=== PATIENT | male | born 1945 | race Caucasian/White ===

== ENCOUNTER 2022-12-15 04:59 | Observation (INO) ==
--- NOTE | 2022-08-09 16:32 | PAT Medication Instructions ---
Medication Instructions Date of Service August 09, 2022 Home Medications celecoxib 200 mg capsule (Celebrex) 200 mg PO BID gabapentin 100 mg capsule 100 mg PO BID metformin 500 mg tablet 500 mg PO HS montelukast 10 mg tablet (Singulair) 10 mg PO DAILY PRN rosuvastatin 10 mg tablet (Crestor) 10 mg PO Q2D tramadol 50 mg tablet 50 mg PO QAM Continue as directed rosuvastatin 10 mg tablet (Crestor) 10 mg PO Q2D ASK your surgeon for instructions celecoxib 200 mg capsule (Celebrex) 200 mg PO BID Take morning of surgery With a small sip of water, OTHERWISE NOTHING TO EAT OR DRINK AFTER MIDNIGHT: gabapentin 100 mg capsule 100 mg PO BID montelukast 10 mg tablet (Singulair) 10 mg PO DAILY PRN(if needed) tramadol 50 mg tablet 50 mg PO QAM Take evening before surgery gabapentin 100 mg capsule 100 mg PO BID metformin 500 mg tablet 500 mg PO HS Other Notes If you have any questions please call us at [phone] or [phone] or [phone] or [phone]
--- NOTE | 2022-08-13 11:06 | Anesthesiology Consultation ---
Date of Service August 13, 2022 Assessment & Plan (1) Encounter for pre-operative examination: - COVID screening: Per assessment on 08/13: No known COVID-19 positive contacts or current COVID-19 related symptoms. Travel screen negative. Patient vaccinated. At surgeon discretion if preop Covid testing being done. - Check BSG AM DOS - Outpatient joint assessment: Pt currently scheduled for inpatient pathway. If surgeon requests review for outpatient joint pathway, patient is acceptable candidate for outpatient joint program from anesthesia standpoint pending surgeon's office assessment of pt motivation/strong home support/completion of same day joint program preop requirements. - Cardiology office visit (08/09/22): "Pt is having left knee replacement in 08/2022.. Pt is cleared at low risk.. RBBB on EKG today.. Denies chest discomfort and SOB. Knee pain limits walking." - Patient acceptable risk for surgery pending surgeon-ordered PCP preop evaluation (Dr. Bowen Gupta/Mani, done already per pt). Chart Review Chart Review: Patient seen in Pre Admission Testing Teaching & Discussion Pre-Anesthesia Teaching/Discussion Notes: Instructed NPO after midnight before surgery,except medications with 15 cc of water. Medication instructions provided according to the PAT guidelines. History Surgery Operation Date: 09/08/22 08:50 Proposed Procedures p Left Total Knee Arthroplasty - Jefferson Fermin MD Height/Weight Height: 6 ft 1 in Weight: 97.8 kg Allergies Allergy/AdvReac Type Severity Reaction Status Date / Time No Known Allergies Allergy Verified 08/09/22 13:31 Medications Home Medications Medication Instructions Recorded Confirmed Last Taken celecoxib 200 mg capsule (Celebrex) 200 mg PO BID 08/09/22 08/09/22 Unknown gabapentin 100 mg capsule 100 mg PO BID 08/09/22 08/09/22 Unknown metformin 500 mg tablet 500 mg PO HS 08/09/22 08/09/22 Unknown montelukast 10 mg tablet 10 mg PO DAILY PRN Congestion 08/09/22 08/09/22 Unknown (Singulair) rosuvastatin 10 mg tablet (Crestor) 10 mg PO Q2D 08/09/22 08/09/22 Unknown tramadol 50 mg tablet 50 mg PO QAM 08/09/22 08/09/22 Unknown Past Medical History Medical History Degenerative joint disease Diabetes mellitus, type 2 NIDDM Osteoarthritis Exercise / Class Metabolic Activity II 4-5 Yardwork/Stairs/Walk up hill (one FS (no CP, no SOB)) Past Surgical History Surgical History History of esophagogastroduodenoscopy (EGD) Hx of colonoscopy Hx of hemorrhoidectomy Hx of sinus surgery Past Anesthesia History No Hx of Anesthesia Complications and No Family Hx of Anesthesia Complications History of PONV No Hx of PONV and No Hx of Motion Sickness Social History Smoking Status: Former smoker Do You Dip or Chew Tobacco: No Smoking End Date: Age 20s only Hx Alcohol Use: No Hx Substance Use: No substance use type: does not use Review of Systems Recent sinus issues (hx of recurrent sinus issues/infections)- improving. Pt monitoring and will contact PAT if persistent/worsening. Patient denies chest pain, shortness of breath, dyspnea on exertion, fever, chills, cough, wheezing, palpitations. Physical Exam Vital Signs VITALS BP 139/93 P 63 TEMP 98.3 SP02 95%RA RESP 16 PHYSICAL Full cervical extension range of motion. Full TMJ range of motion. TMD 3 finger breaths Mallampati Score 3 Dentition: intact Lungs: clear throughout to auscultation Cardiac: regular rate and rhythm, no murmurs noted Spine: normal Carotid arteries: negative bruit Extremities: no edema Lab Results Anesthesia Preop Results Results Anesthesia Widget: WBC 11.13 K/ul (4.8-10.8) H 08/13/22 Hgb 16.1 g/dl (14.0-18.0) 08/13/22 Hct 45.9 % (40.1-51.0) 08/13/22 Plt 240 K/uL (130-400) 08/13/22 Na 138 mmol/L (136-145) 08/13/22 K 4.1 mmol/L (3.5-5.1) 08/13/22 Cl 103 mmol/L (98-107) 08/13/22 CO2 28 mmol/L (21-32) 08/13/22 BUN 20 mg/dl (6-23) 08/13/22 Creat 0.94 mg/dl (0.6-1.4) 08/13/22 Glucose Level 126 mg/dl (70-99(Fasting)) H 08/13/22 PT 11.7 Seconds (9.0-12.0) 08/13/22 PTT 28.4 Seconds (21.0-31.0) 08/13/22 INR 1.1 (0.9-1.1) 08/13/22 HA1c 6.2 % (4.5-5.6) H 08/13/22 Urine Color Yellow 08/13/22 Urine Appearance Clear (Clear) 08/13/22 Urine pH 7.0 (4.5-7.5) 08/13/22 Urine Specific [place] 1.011 (1.000-1.030) 08/13/22 Urine Protein Negative (Negative) 08/13/22 Urine Glucose (UA) Negative (Negative) 08/13/22 Urine Ketones Negative (Negative) 08/13/22 Urine Blood Negative (Negative) 08/13/22 Urine Nitrite Negative (Negative) 08/13/22 Urine Bilirubin Negative (Negative) 08/13/22 Urine Urobilinogen Negative (Negative) 08/13/22 Urine Leukocyte Esterase Negative (Negative) 08/13/22 Blood Type B Positive 08/13/22 Antibody Screen NEGATIVE 08/13/22 Testing Electrocardiogram Date: 08/09/22 Sinus rhythm with marked sinus arrhythmia with first-degree AV block at 88 bpm. Low voltage QRS. RBBB. T wave abnormality, consider lateral ischemia. Done/reviewed at 08/09/22 cardiology preop evaluation appt Chest X-Ray Date: 08/13/22 Findings: + NAD COVID-19 Risk Screen Screening Information COVID-19 Screen Date: 08/13/22 Exposure 21 Days Family/Household +COVID Last 21 Days: No Exposure 10 Days Any COVID Exposure Last 10 Days: No Symptoms Last 10 Days Experienced COVID Sx Last 10 Days: No + COVID 0-90 Days COVID + in Last 0-90 Days: No
--- NOTE | 2022-08-31 17:16 | History & Physical Report ---
Date of Service August 31, 2022 Assessment & Plan (1) Left knee DJD: Plan: Informed written consent will be obtained the morning of surgery to proceed with Left total knee arthroplasty. Postoperative prescriptions for Percocet 5/325 mg and Coumadin 2 mg will be provided at discharge from the hospital. Anticipate discharge to home with home health services. He will do this for 2 weeks before transitioning to outpatient PT. He has already seen PT for preoperative testing. He is scheduled to see his PCP for medical clearance. PDMP was checked and there are no concerning findings. Patient is aware of the COVID-19 risks associated with surgery. He is currently asymptomatic of any COVID-19 symptoms. He already has access to a cane and walker. Postoperative follow-up appointment has been made with me for September 23 at 1:30 PM. History of Present Illness Chief Complaint: Left knee pain Primary Care Provider: NO PCP This 77-year-old male presents for his preoperative history and physical. He is scheduled to undergo a left knee total knee arthroplasty on 09/08/2022. Patient has had a longstanding history of left knee pain. Symptoms have been ongoing for over 4 years. He has tried viscosupplementation and cortisone injections in the past with moderate success. Over the last 6 months, the lubr ication injections have not been working. Pain is increased. He elects to proceed with surgical intervention in hopes of improving his pain and function. Preoperative imaging has been obtained. Pain is worse with weightbearing. It is affecting his ADLs. He denies any numbness or tingling. Allergies Allergy/AdvReac Type Severity Reaction Status Date / Time No Known Allergies Allergy Verified 08/09/22 13:31 Home Medications Medication Instructions Recorded Confirmed Type celecoxib 200 mg capsule (Celebrex) 200 mg PO BID 08/09/22 08/09/22 History gabapentin 100 mg capsule 100 mg PO BID 08/09/22 08/09/22 History metformin 500 mg tablet 500 mg PO HS 08/09/22 08/09/22 History montelukast 10 mg tablet 10 mg PO DAILY PRN Congestion 08/09/22 08/09/22 History (Singulair) rosuvastatin 10 mg tablet (Crestor) 10 mg PO Q2D 08/09/22 08/09/22 History tramadol 50 mg tablet 50 mg PO QAM 08/09/22 08/09/22 History Past Med/Surg History Medical History (Updated 08/31/22 @ 17:18 by Kenney Hua PA-C) Degenerative joint disease Diabetes mellitus, type 2 NIDDM Low back pain Osteoarthritis Surgical History History of esophagogastroduodenoscopy (EGD) Hx of colonoscopy Hx of hemorrhoidectomy Hx of sinus surgery Family History (Updated 08/31/22 @ 17:11 by Kenney Hua PA-C) Other No pertinent family history Social History Smoking Status: Former smoker Second Hand Exposure: Yes (smoking in the workplace); Hx Alcohol Use: No Hx Substance Use: No Preferred Language: Bahamian Communication Ability: Effective Health Care Attorney Required: No Beliefs That Will Affect Care: None Current Living Situation: Spouse Feels Safe at Home: Yes Assistive Devices: Glasses Review of Systems Review of Systems: All systems reviewed & are unremarkable except as noted in HPI & below A total of 10 systems were reviewed. Physical Exam Physical Exam: General: Well-developed, well-nourished, elderly white male, in no acute distress. Sitting in a chair. Alert and oriented. Conversive. Skin: Warm dry with good turgor. No rashes or lesions. No ecchymosis or erythema. No intra-articular effusion. HEENT: Normocephalic, atraumatic. Eyes PERRLA, EOMI. Nares and oropharynx exams deferred due to COVID precautions. Heart: Heart RRR. No MGR. Peripheral pulses are 2+. Lungs: Lungs are clear to auscultation. No crackles rhonchi or wheezing. Good air movement. The patient is able to take a deep breath. Abdomen: Abdomen was inspected, auscultated, and palpated. Bowel sounds present x 4. Soft, nontender to palpation. No hepato-splenomegaly. No masses noted. No rebound. Musculoskeletal: Left knee evaluation reveals no intra-articular effusion. He has full terminal extension. Flexion to greater than 100 degrees. Strength is 5/5 with fairly good quad tone. He has focal discomfort with palpation of the medial joint line. There is also anterior joint line discomfort with palpation. No lateral joint line discomfort today. He does have parapatellar discomfort, and most of his pain is retropatellar. Crepitus is palpable with motion. Stable collateral events. No defect in the patellar tendon or quadriceps tendon. Neurologic: Gross sensation is intact across both lower extremities by soft touch. Results & Data Results & Data ([facility]) Diagnostic Findings Radiographic imaging previously obtained shows end-stage DJD of the medial compartment of the left knee. Periarticular osteophytes, subchondral sclerosis, and joint space narrowing are all present. There appears to be a loose body present posteriorly as well. Fairly well-preserved patellofemoral space. Code Status & VTE Plan VTE Prophylaxis Plan VTE Prophylaxis will be ordered: Yes
--- NOTE | 2022-12-10 10:55 | Anesthesiology Consultation ---
Date of Service December 10, 2022 Assessment & Plan (1) Encounter for pre-operative examination: Chart Review Chart Review: Acceptable Risk for Surgery and Patient NOT seen in Pre Admission Testing *Pt seen by both PCP and Cardiology in preparation for surgery. PCP visit 12/01/22: 'able to perform 6METS without CP or SOB, No issues with anesthesia in the past, NO hx of abnormal heart rhythms... Pt is considered low to moderate risk for an intermediate risk procedure.' Cardio visit 08/09/22: EKG reviewed. 'RBBB on EKG... pt is cleared at low risk'.* Upon review of chart- patient is an acceptable candidate for Same Day Joint Program from anesthesia perspective. Pending patient is motivated, has good support and surgeon's office completes Same Day Joint Program preop requirements- patient may proceed with outpatient TKA. *CBC, BMP, PT/INR, and POC glucose to be completed AM of surgery* Pt was originally scheduled for this procedure 08/2022 but was delayed 2/2 pt tested positive for COVID-19 on 09/07/22. Pt denies any ongoing COVID sx. Surgery >90days after diagnosis. COVID screening: Per PAT nursing assessment on 12/10/22, No known COVID-19 positive contacts or current COVID-19 related symptoms. Travel screen negative. Patient vaccinated for Covid. At surgeon discretion if preop Covid testing being done. History Surgery Operation Date: 12/15/22 08:50 Proposed Procedures p Left Total Knee Arthroplasty - Jefferson Fermin MD Height/Weight Height: 6 ft 1 in Weight: 94.801 kg Allergies Allergy/AdvReac Type Severity Reaction Status Date / Time No Known Allergies Allergy Verified 12/10/22 09:49 Medications Home Medications Medication Instructions Recorded Confirmed Last Taken celecoxib 200 mg capsule (Celebrex) 200 mg PO BID 08/09/22 12/10/22 Unknown gabapentin 100 mg capsule 100 mg PO BID 08/09/22 12/10/22 Unknown metformin 500 mg tablet 500 mg PO HS 08/09/22 12/10/22 Unknown montelukast 10 mg tablet 10 mg PO DAILY PRN Congestion 08/09/22 12/10/22 Unknown (Singulair) rosuvastatin 10 mg tablet (Crestor) 10 mg PO Q2D 08/09/22 12/10/22 Unknown tramadol 50 mg tablet 50 mg PO QAM 08/09/22 12/10/22 Unknown Past Medical History Medical History (Updated 12/10/22 @ 10:50 by Jessy Gavin PA-C) Degenerative joint disease Diabetes mellitus, type 2 NIDDM History of COVID-19 09/07/22 @ [facility]--mild symptoms--no symptoms now Hyperlipidemia Low back pain Osteoarthritis Past Family History Family History Other No family history of adverse response to anesthesia No pertinent family history Past Surgical History Surgical History History of esophagogastroduodenoscopy (EGD) Hx of colonoscopy Hx of hemorrhoidectomy Hx of sinus surgery Social History Smoking Status: Former smoker Do You Dip or Chew Tobacco: No Smoking End Date: Age 20s only Hx Alcohol Use: No Hx Substance Use: No substance use type: does not use Testing Electrocardiogram Date: 08/09/22 Sinus rhythm with marked sinus arrhythmia with first-degree AV block at 88 bpm. Low voltage QRS. RBBB. T wave abnormality, consider lateral ischemia. Done/reviewed at 08/09/22 cardiology preop evaluation appt Chest X-Ray Date: 08/13/22 Findings: + NAD
[~2022-12-15 04:59] MED LIST: LR 500ML BOLUS, THEN 15ML/HR IV SCH; LR 60ML/HR IV SCH; TRANEXAMIC ACID 1,000 MG **IV Pre-op IV SCH; ceFAZolin 2000MG 2,000 MG/15 ML SYR IV SCH
[2022-12-15] MEDS ORDERED: LR 60ML/HR IV SCH (06:00)
[2022-12-15] MEDS ORDERED: TRANEXAMIC ACID 1,000 MG **IV Pre-op IV SCH (06:00)
[2022-12-15] MEDS ORDERED: ROPIVACAINE 0.5% HCL/PF 150 MG, BUPIVACAINE 0.75% MPF 20 ML, EPINEPHrine 0.15 MG, Ketor... INFIL SCH (06:00)
[2022-12-15] MEDS ORDERED: ceFAZolin 2000MG 2,000 MG/15 ML SYR IV SCH (06:00)
[2022-12-15] MEDS ORDERED: LR 500ML BOLUS, THEN 15ML/HR IV SCH (06:00)
[2022-12-15] MEDS ORDERED: ROPIVACAINE 0.5% 5 MG/ML 30 ML VIAL ONE (06:22)
--- NOTE | 2022-12-15 06:28 | History & Physical Bridge Note ---
Date of Service December 15, 2022 History & Physical Bridge Note I have examined the patient, reviewed the History & Physical and in the interval since the performance of the History & Physical I have noted the following changes of clinical significance:consent obtained/site verified/ no changes noted
[2022-12-15] MEDS ORDERED: ORTHO JOINT ANESTHETIC ONE (06:35)
[2022-12-15] MEDS ORDERED: ONDANSETRON INJ 2 MG/ML 2 ML VIAL IV PRN ×2 (06:40→10:56)
[2022-12-15] MEDS ORDERED: HYDROmorphone INJ 1 MG/ML SYRINGE IV PRN (06:40)
[2022-12-15] MEDS ORDERED: ATROPINE SULFATE 0.1 MG/ML 10ML SYR IV PRN (06:40)
[2022-12-15] MEDS ORDERED: ePHEDrine sulfate 50 MG/ML AMP IV PRN (06:40)
[2022-12-15] MEDS ORDERED: KETOROLAC 30 MG/ML VIAL IV PRN (06:40)
[2022-12-15] MEDS ORDERED: MIDAZOLAM HCL 1 MG/ML 2ML VIAL ONE (06:41)
[2022-12-15] MEDS ORDERED: PROPOFOL IV EMULSION 10 MG/ML 20 ML VIAL IV ONE ×2 (07:02→08:12)
[2022-12-15] MEDS ORDERED: PHENYLEPHRINE 100MCG/ML 5ML SYR ONE (07:32)
--- NOTE | 2022-12-15 08:38 | Post Operative Brief Note ---
Immediate Post Op Note v1 Date of Surgery December 15, 2022 Pre & Post Diagnosis Operation Date: 12/15/22 07:00 <No data on this case meets the specified criteria> I identified the patient and participated in the time-out.: Yes Procedure Operation Date: 12/15/22 07:00 <No data on this case meets the specified criteria> Surgeon Jefferson Fermin MD Cable Tender Sarah/Melita Estimated Blood Loss 25 Findings Consistent with Post-Op Diagnosis
--- NOTE | 2022-12-15 08:46 | Operative Report ---
Post Operative Report Pre & Post Diagnosis Operation Date: 12/15/22 07:00 Pre-Op Diagnosis: Left Knee Degenerative Joint Disease Post-Op Diagnosis: Left Knee Degenerative Joint Disease I identified the patient and participated in the time-out.: Yes Procedure Operation Date: 12/15/22 07:00 Actual Procedures p Left Total Knee Arthroplasty(Left) - Jefferson Fermin MD Surgeon GENE Fermin MD Gang Supervisor Sarah/Melita SANCHEZ Estimated Blood Loss 25 Findings Consistent with Post-Op Diagnosis see operative report Specimens see operative report Drains none Complications none Disposition Accompanied Patient To Recovery: Yes Indications This 77 year old male presented to the office with complaints of persisting left knee pain. He had tried conservative care measures including activity modification, viscosupplementation injections, and oral pain medication, without lasting improvement. He elected to proceed with surgical intervention after being educated about potential risks and outcomes. Preoperative imaging was obtained. Description of Procedure The patient was administered a spinal anesthetic and then taken to the operating room where he was given sedation. He was prepped and draped in the usual sterile fashion. Please see Dr. Fermin's operative report for specifics of the procedure. I was present for the entire case from initial patient positioning through final wound closure. Assistance was provided in tissue retraction, hemostasis, trial implant placement, final implant placement, and final wound closure. Patient was taken to the recovery room in satisfactory condition. I attest to the content of the Intraoperative Record and any orders documented therein. Any exceptions are noted below.
[2022-12-15] MEDS ORDERED: PHENYLEPHRINE HCL 10 MG/ML VIAL ONE (08:49)
--- NOTE | 2022-12-15 09:00 | XRay Report ---
LEFT KNEE 2 VIEWS History: Left total knee arthroplasty. Degenerative arthritis. Postop. FINDINGS: The patient is status post a left total knee arthroplasty. The hardware is intact. No fract ure or dislocation. Skin wilfred are in place. IMPRESSION: Left total knee arthroplasty. No evidence for hardware complication. ACT 112: Negative or not required by law. Electronically signed by: Albert Fenton M.D. 12/15/2022 8:59 AM
--- NOTE | 2022-12-15 09:07 | Progress Notes ---
SUBJECTIVE: Postop check status post left total knee replacement. The patient is resting comfortabl y in bed. Denies any chest pain, shortness of breath, fever, chills, nausea, vomiting or headache. VITAL SIGNS: Stable. He is afebrile. Neurovascular check is limited by his spinal, which was wearing off. His dressing is clean, dry and intact. His x-rays, AP, lateral of the left knee reveals excellent alignment and hardware positioning. ASSESSMENT AND PLAN: Status post left total knee replacement. Continue with care pathway. Discharg e to home tomorrow. DVT prophylaxis per protocol. Job ID: [id number]
--- NOTE | 2022-12-15 09:10 | Operative Report (OR) ---
DATE OF PROCEDURE: 12/15/2022. SURGEON: Jefferson Fermin MD OFFSET PRESS ASSISTANT: Dr. Smith. SECOND OFFSET PRESS ASSISTANT: Kenney Hua PA-C PREOPERATIVE DIAGNOSIS: Osteoarthritis, left knee with varus deformity. POSTOPERATIVE DIAGNOSIS: Osteoarthritis, left knee with varus deformity. OPERATION PERFORMED: Cemented left total knee replacement. PERIOPERATIVE SITUATION: Medically cleared male with intractable knee pain, has recurrent pain, swel ling and discomfort. He has significant issues with doing his activities of daily living and having trouble sleeping. He wants to proceed with surgical treatment. He understands the risks and consequ ences including infection, need for revision, stiffness, etc. Also PE and DVT. SUMMARY OF IMPLANTS: Size 3 left femur, posterior cruciate substituting size 3 mobile bearing tray, size 38 patella, size 3 x 10 insert posterior cruciate substituting 2 bags of Pal[place]os G cement. ESTIMATED BLOOD LOSS: 25 mL. CRYSTALLOID: Per anesthesia. PATHOLOGY: Pending on bone. DVT PROPHYLAXIS: Per protocol. DESCRIPTION OF PROCEDURE: The patient was appropriately identified, site verified, consent verified. Antibiotics were confirmed as being given. The left lower extremity was prepped and draped in the usual routine fashion. He had no significant flexion contracture, but had significant varus. Tourni quet was applied and inflated after the leg was prepped and draped in usual routine fashion to 275 mm Hg after exsanguination of the limb with a rubber Esmarch bandage for a total of 53 minutes. Midline exposure utilized. Parapatellar arthrotomy performed. Synovectomy completed. Osteophytes resected. Distal femur entered. Cruciates resected. Tibia was subluxated, menisci resected. Distal femur w as then cut 12 mm, proximal tibia was then cut 4 mm. The extension gap was excellent. The femur was sized between a 2.5 to a 4, so was measured 4 and cut 3. There were no significant issues. Once mike t was done, the flexion gap was checked after the anterior and posterior condylar and chamfer cuts al l made and the flexion gap was excellent. The posterior capsule was then injected with the Orthomix and then the box cut made and a size 3 fit well. The tibia was then broached and reamed to a size 3 and the trial seated with excellent coverage. Rotation of the implant was excellent. The patella tr acked well. The patella was then everted. Minor synovectomy completed. There was grade IV disease in the central ridge of the patella. This was resected leaving 14 mm. A 38 button was seated. It t racked well. The knee was then injected with Orthomix around the knee. All trial implants were ruben melisa. The knee was irrigated with Pulsavac Betadine and then cemented into position, tibia, femur, an d patella in that order. At 12 minutes, the tourniquet deflated. Minor bleeding points controlled w ith electrocautery. Bone cement placed around the cuttings. At 14 minutes, the knee was flexed. No major cement removal was required. The wound was irrigated with Pulsavac Betadine and then the perm anent liner seated, the knee reduced and closed at 40 degrees of flexion with #2 Vicryl, 2-0 Vicryl, and stainless steel clips. Appropriate dressing applied and the patient was transferred to recovery room in satisfactory condition, having tolerated the procedure well. Pathology pending on bone. DVT prophylaxis per protocol. EBL 25 mL. Femur size 3 left, size 3 tibia mobile bearing tray, size 38 p atella, size 3 x 10 insert, posterior cruciate substituting all J and J rotating platform, DePuy knee system. Job ID: [id number]
--- NOTE | 2022-12-15 09:27 | Discharge Summary (DS) ---
DATE OF ADMISSION: 12/15/2022. DATE OF POTENTIAL DISCHARGE: 12/16/2022. CHIEF COMPLAINT: Left knee pain. HISTORY OF PRESENT ILLNESS: Underwent elective left total knee replacement. To date hospital course has been uneventful. He had COVID back in August and has recovered from that. REVIEW OF SYSTEMS: Reveals no chest pain, shortness of breath, fever, chills, nausea, vomiting or he adache. FAMILY HISTORY: Remarkable for anxiety, hypertension, diabetes. SOCIAL HISTORY: Reveals he is , 3 children and has multiple grandchildren. No tobacco or alc ohol use. He is self employed. PAST MEDICAL HISTORY: Remarkable for non-insulin dependent diabetes, bilateral osteoarthritis, eleva carey cholesterol, anxiety, sinusitis and hearing loss. PAST SURGICAL HISTORY: Includes tonsillectomy, hemorrhoidectomy. Sinus surgery with adenoids. PREADMISSION MEDICATIONS: Include Celebrex, metformin, Singulair, Crestor, tamsulosin, tramadol. ALLERGIES: None. REVIEW OF SYSTEMS: Noncontributory. Postoperative x-rays look excellent. ASSESSMENT: Status post left total knee replacement. Continue care pathway. Discharge home tomorro w if does well overnight. DVT prophylaxis per Coumadin per protocol. Job ID: [id number]
--- NOTE | 2022-12-15 09:39 | Anesthesiology Progress Note ---
Date of Service December 15, 2022 Anesthesia Post Procedure Vital Signs Vital Signs: Temp Pulse Pulse Resp BP Pulse Ox O2 Del Method 12/15/22 09:20 78 14 115/79 95 Room Air 12/15/22 09:10 74 13 119/86 97 Room Air 12/15/22 09:08 36.4 C L 75 18 112/89 100 Room Air 12/15/22 08:50 73 17 113/78 98 Oxymask 12/15/22 09:00 75 18 112/89 100 Oxymask 12/15/22 08:43 36.1 C L 72 16 115/74 100 Oxymask 12/15/22 05:31 36.9 C 75 20 141/93 H 94 Room Air O2 Flow Rate 12/15/22 09:20 12/15/22 09:10 12/15/22 09:08 12/15/22 08:50 9 12/15/22 09:00 9 12/15/22 08:43 9 12/15/22 05:31 Pain Intensity Left Knee: Pain Intensity: 5 Transfer of Care Handoff Completed per policy Notes Mental Status: alert / awake / arousable Patient Amnestic to Procedure: Yes Nausea / Vomiting: adequately controlled Pain: adequately controlled Airway Patency, RR, SpO2: stable & adequate BP & HR: stable & adequate Hydration State: stable & adequate Neuraxial Anesthesia: was administered and sensory block is resolving Anesthetic Complications: no major complications apparent
[2022-12-15] MEDS ORDERED: NALOXONE HCL 0.4 MG/1 ML VIAL/CARP IV PRN (10:56)
[2022-12-15] MEDS ORDERED: MAGNESIUM HYDROXIDE SUSP 30 ML UDC PO PRN (10:56)
[2022-12-15] MEDS ORDERED: PHARMACY GLYCEMIC MGMT CONSULT PRN (10:56)
[2022-12-15] MEDS ORDERED: diphenhydrAMINE 50 MG/ML VIAL IV PRN (10:56)
[2022-12-15] MEDS ORDERED: SODIUM CHLORIDE 0.9% 1000ML 1,000 ML IV SCH (10:56)
[2022-12-15] MEDS ORDERED: TAMSULOSIN HCL 0.4 MG CAP PO PRN (10:56)
[2022-12-15] MEDS ORDERED: bisacodyL 10 MG SUPP PR PRN (10:56)
[2022-12-15] MEDS ORDERED: METOCLOPRAMIDE HCL INJ 5 MG/ML 2 ML VIAL IV PRN (10:56)
[2022-12-15] MEDS ORDERED: ALUMINUM/MAGNESIUM SUSP 30 ML UDC PO PRN (10:56)
[2022-12-15] MEDS ORDERED: HYDROmorphone INJ 0.5 MG/0.5 ML SYR IV PRN (10:56)
[2022-12-15] MEDS ORDERED: MONTELUKAST SODIUM 10 MG TABLET PO PRN (10:56)
[2022-12-15] MEDS ORDERED: DEXTROSE 50% 50 ML SYRINGE IV PRN (11:15)
[2022-12-15] MEDS ORDERED: ROSUVASTATIN CALCIUM 10 MG TAB PO SCH (11:15)
[2022-12-15] MEDS ORDERED: GLUCOSE 40% GEL 15 GM TUBE PO PRN (11:15)
[2022-12-15] MEDS ORDERED: CARBOHYDRATES FOR HYPOGLYCEMIA PO PRN (11:15)
[2022-12-15] MEDS ORDERED: GLUCAGON FOR INJ 1 MG VIAL IM PRN (11:15)
[2022-12-15] MEDS ORDERED: GLUCOSE 10 TAB/TUBE PO PRN (11:15)
[2022-12-15] MEDS: GABAPENTIN 100 MG CAP PO SCH ×2 (11:36→21:18)
[2022-12-15] MEDS: MULTIVITAMIN TAB PO SCH (11:36)
[2022-12-15] MEDS: DOCUSATE SODIUM 100 MG CAP PO SCH ×2 (11:36→21:16)
--- NOTE | 2022-12-15 11:37 | Progress Notes ---
DATE OF SERVICE: 12/15/2022. SUBJECTIVE: Postop check status post left total knee replacement. The patient is awake and alert, f eels fine. Denies any chest pain, shortness of breath, fever, chills, nausea, vomiting or headache. He is eating and drinking. His neurovascular check femoral sciatic nerve is returning well. Wound d ressing clean, dry and intact. Postoperative x-rays look good. ASSESSMENT: Doing well. Continue with care pathway. Likely discharge to home tomorrow. Job ID: [id number]
[2022-12-15] MEDS: INSULIN ASPART PER UNIT CHARGE SC SCH ×3 (11:43→21:17)
[2022-12-15] MEDS: KETOROLAC TROMETHAMINE 15 MG/ML VIAL IV SCH ×3 (13:22→23:36)
[2022-12-15] MEDS: ACETAMINOPHEN 500 MG TAB PO SCH ×2 (13:23→21:18)
[2022-12-15] MEDS ORDERED: ORTHO WARFARIN NOMOGRAM SCH (14:00)
[2022-12-15] MEDS ORDERED: TRANEXAMIC ACID / 0.7% NACL 1,000 MG/100 ML BAG IV SCH (15:00)
[2022-12-15] MEDS ORDERED: WARFARIN SOD 5 MG TAB PO ONE (16:00)
[2022-12-15] MEDS: ceFAZolin 2000MG 2,000 MG/15 ML SYR IV SCH ×2 (16:11→23:35)
[2022-12-15] MEDS: ASCORBIC ACID 500 MG TAB PO SCH (17:40)
[2022-12-15] MEDS: FERROUS GLUCONATE 324 MG TAB PO SCH (17:42)
[2022-12-15] MEDS ORDERED: SENNA 8.6 MG TAB PO SCH (21:00)
[2022-12-16] MEDS: oxyCODONE HCL IR 5 MG TAB (IMMEDIATE RELEASE) PO PRN ×3 (03:52→10:34)
[2022-12-16] MEDS: ACETAMINOPHEN 500 MG TAB PO SCH (05:49)
[2022-12-16] MEDS: KETOROLAC TROMETHAMINE 15 MG/ML VIAL IV SCH (05:49)
--- NOTE | 2022-12-16 07:38 | Pharmacy Report ---
Pharmacy Glycemic Sign Off Nt - Date of Service December 16, 2022 - Assessment & Plan ASSESSMENT: * Pharmacy was consulted by Kenney Hua on 12/15 for glycemic control and to write orders per [facility] inpatient glycemic control protocol. * Major changes made by pharmacy to antidiabetic regimen include: * added novolog scale * Patient has been receiving minimal insulin over last 24 hours * Do not anticipate further changes in patient status that would quickly deteriorate glycemic control (i.e. patient to be NPO for upcoming procedure, steroids tapering, starting tube feedings, etc). * Please see recommendations for outpatient antidiabetic regimen below. PLAN FOR INPATIENT GLYCEMIC CONTROL: No changes needed to current regimen. * Continue NovoLog per scale ACHS/Q6hrs while NPO * Goal range = 110-140 mg/dl * CF = 30 mg/dl/unit * CR = 1 unit for ever 15 g CHO consumed * Pharmacy is signing off of glycemic consult and will no longer be making adjustments to inpatient regimen. Please feel free to re-consult if needed. Thank you.
--- NOTE | 2022-12-16 07:43 | Progress Notes ---
SUBJECTIVE: Postop check status post left total knee replacement. The patient is doing well. Denie s any chest pain, shortness of breath, fever, chills, nausea, vomiting or headache. He has been ambulatory. VITAL SIGNS: Stable. He is afebrile. He is 97% saturated on room air. Femoral sciatic nerve function is good. Can do a straight leg raise. Can do heel slide to be at [address] 60 degrees. Wound dressing clean, dry and intact. Calves nontender. ASSESSMENT: Overall doing well. Continue with care pathway, PT/OT, and discharge home today. Couma din dose per nomogram today. Send home on typical dose based on INR results. Repeat on Tuesday, next week. Job ID: [id number]
[2022-12-16 08:06] LABS: Hematocrit (blood only) 40.5 % (42.0-52.0); Hemoglobin 14.5 g/dl (14.0-18.0); Mean Corpuscular Hemoglobin 30.3 pg (25.0-34.0); Mean Corpuscular Hgb Conc 35.8 g/dL (32.0-36.0); Mean Corpuscular Volume 84.7 fL (80.0-100.0); Mean Platelet Volume 10.3 fL (9.4-12.4); Platelet Count 217 K/uL (130-400); RDW Coefficient of Variation 12.3 % (11.5-14.5); RDW Standard Deviation 37.6 fL (36.4-46.3); Red Blood Count 4.78 M/uL (4.70-6.10); White Blood Count 14.24 K/ul (4.8-10.8)
[2022-12-16 08:18] LABS: INR 1.2 (0.9-1.1); Prothrombin Time 12.8 Seconds (9.0-12.0)
[2022-12-16 08:24] LABS: Calcium 9.5 mg/dl (8.6-10.3); Potassium 4.2 mmol/L (3.5-5.1)
[2022-12-16 08:29] LABS: Creatinine Clr Calc Pharmacy 70.9 ml/min; Est GFR (African American) 75.7 ml/min; Est GFR (Non-African American) 65.3 ml/min
--- NOTE | 2022-12-16 09:21 | Orthopedic Progress Note ---
Date of Service December 16, 2022 Assessment & Plan (1) S/P total knee replacement using cement: Plan: The patient was educated regarding today's findings. Conservative care measures were discussed. His postsurgical dressing was changed by me. Brody stocking was applied. Continue using his knee immobilizer today and tomorrow. Discontinue it on Tuesday morning. Weight-bear as tolerated using his walker. Continue with quad sets and range of motion. Written discharge instructions were provided. He will use Coumadin 4 mg daily through the weekend and have his blood rechecked on Tuesday. Home health has been arranged and he is aware. Keep the dressings in place over the weekend. They may be changed on Tuesday if there is soiling. Follow-up in the office in 2 weeks as scheduled for staple removal. Admission and Anticipated Discharge Date Admission Date: December 15, 2022 Subjective This 77-year-old male is seen today in his room. He is 1 day status post left total knee arthroplasty. He states he is doing very well. He has already been out of bed and walking in the hallway. He does have some pain, but states it is tolerable. He feels ready to be discharged to home. He has already done occupational therapy this morning and is waiting for PT. He denies any chest pain, shortness of breath, nausea, vomiting, or abdominal pain. No other complaints. Review of Systems Review of Systems: Unchanged from yesterday. Physical Exam Physical Exam: General: Well-developed, well-nourished, elderly male, in no acute distress. Si tting in a chair. Alert and oriented. Conversive. Skin: Warm and dry with good turgor. No rashes. Postsurgical dressing is in place on the left leg. Upon removal, he has a healing surgical incision anteriorly. Oscar are in place. Wound edges are well approximated. No erythema or warmth. No active drainage. There is scant drainage on his inner dressings. No significant edema yet. Musculoskeletal: The patient has intact motor function to the left leg. He is able to set his quad and perform a straight leg raise. Full terminal extension. Flexion to around 70 degrees. Intact motor function to the ankle and toes. Neurologic: Gross sensation is intact across the left leg by soft touch. Peripheral pulses are 2+. Results & Data Vital Signs (Past 12 Hours) Vital Signs Temp Pulse Resp BP BP Pulse Ox O2 Del Method 04/20/23 07:15 Room Air 12/16/22 07:00 36.3 C L 83 20 170/100 H 100 Room Air 12/16/22 03:57 36.4 C L 69 16 137/89 97 Room Air 12/15/22 21:45 Room Air 12/15/22 22:39 36.6 C 97 H 16 137/78 96 Room Air Laboratory Results CBC obtained this morning shows a white count of 14.2. H&H of 14.5 and 40.5. INR is 1.2. BMP is unremarkable. Glucose was 178 this morning.
[2022-12-16] MEDS: GABAPENTIN 100 MG CAP PO SCH (09:22)
[2022-12-16] MEDS: ASCORBIC ACID 500 MG TAB PO SCH (09:22)
[2022-12-16] MEDS: FERROUS GLUCONATE 324 MG TAB PO SCH (09:22)
[2022-12-16] MEDS: DOCUSATE SODIUM 100 MG CAP PO SCH (09:23)
[2022-12-16] MEDS: MULTIVITAMIN TAB PO SCH (09:23)
[2022-12-16] MEDS: INSULIN ASPART PER UNIT CHARGE SC SCH (09:23)
[2022-12-16] MEDS ORDERED: WARFARIN SOD 5 MG TAB PO ONE (10:30)
[2022-12-16] MEDS ORDERED: ORTHO WARFARIN NOMOGRAM SCH (14:00)
== END 2022-12-16 12:06 | disposition home health service (06) ==
LOC: ASU 04:59 → PACUINP 04:59 → 3E 12:55